=== PATIENT | female | born 1965 | race Caucasian/White ===

== ENCOUNTER 2018-03-01 15:37 | Outpatient (CLI) | payer BC ==
--- NOTE | 2018-03-06 09:41 | Mammography Report ---
Reason: SCREENING MAMMO Procedure Date: 03/01/2018 Accession Number: [id number] / [id number] Procedure: JW - Screening Mammo Dig Bilat CPT Code: FULL RESULT: EXAM: Screening Mammo Dig Bilat DATE: 03/01/2018 4:07 PM CLINICAL HISTORY: Screening mammogram TECHNIQUE: Bilateral CC and MLO views were obtained. COMPARISON: Mammogram 11/23/2015 FINDINGS: The breast parenchyma is heterogeneously dense which may limit the sensitivity of mammography. There are benign appearing calcifications. No suspicious masses, clustered microcalcifications, or regions of architectural distortion are identified. IMPRESSION: Benign findings RECOMMENDATION: Routine annual screening unless otherwise clinically indicated. BIRADS CATEGORY 2: Benign findings STANDARD QUALIFYING STATEMENTS: 1. This examination was reviewed with the aid of Computer-Aided Detection (CAD). 2. A negative or benign imaging report should not delay biopsy if clinically suspicious findings are present. Consider surgical consultation if warrented. More than 5% of cancers are not identified by imaging. 3. Dense breasts may obscure an underlying neoplasm.
== END 2018-03-01 15:38 | disposition home or self-care (01) ==
LOC: DI 15:37
PROVIDERS: ATTEND Family Medicine
DX: Z12.31 Encounter for screening mammogram for malignant neoplasm of breast (principal)
CPT/HCPCS: 77067

== ENCOUNTER 2019-01-23 | Outpatient (CLI) | payer BC | END 2019-01-23 23:59 | disposition home or self-care (01) ==

== ENCOUNTER 2019-05-02 15:10 | Outpatient (CLI) | payer BC ==
--- NOTE | 2019-05-05 08:29 | Mammography Report ---
Reason: ROUTINE MAMMO Procedure Date: 05/02/2019 Accession Number: [id number] / [id number] Procedure: JW - Screening Mammo w/Vlad CPT Code: Final Report FULL RESULT: EXAM: Screening Mammo w/Vlad DATE: 05/02/2019 4:00 PM CLINICAL HISTORY: Routine screening. No reported personal history of breast cancer. Family history of breast cancer paternal grandmother age 66. TECHNIQUE: (B) - Bilateral CC and MLO views were obtained. COMPARISON: 03/01/2018 through 03/18/2010. PARENCHYMAL PATTERN: (D) - The breasts demonstrate heterogeneously dense fibroglandular parenchyma bilaterally. FINDINGS: Bilateral breasts: There are no suspicious masses, calcifications, or areas of distortion. IMPRESSION: Negative examination. BI-RADS category 1. RECOMMENDATION: (ANNUAL) - Recommend routine annual screening mammography. BI-RADS CATEGORY: (1) - Negative. STANDARD QUALIFYING STATEMENTS: 1. This examination was not reviewed with the aid of Computer-Aided Detection (CAD). 2. A negative or benign imaging report should not preclude biopsy if clinically suspicious findings are present. 3. Dense breasts may obscure an underlying neoplasm. 4. This examination was reviewed with the aid of 3D breast imaging (tomosynthesis).
== END 2019-05-02 15:11 | disposition home or self-care (01) ==
LOC: DI 15:10
DX: Z12.31 Encounter for screening mammogram for malignant neoplasm of breast (principal); Z80.3 Family history of malignant neoplasm of breast
CPT/HCPCS: 77063; 77067

== ENCOUNTER 2020-05-08 07:00 | Outpatient (CLI) | payer BC, OTHER ==
--- NOTE | 2020-05-08 10:21 | XRAY Report ---
PROCEDURE: Chest 2 View X-Ray INDICATIONS: CHEST WALL PAIN TECHNIQUE: 2 view(s) of the chest. COMPARISON: None. FINDINGS: Surgical changes and devices: None. Lungs and pleura: No pleural effusions or pneumothorax. Lungs are clear. Mediastinum: Mediastinal contours are normal. Heart size is normal. Bones and chest wall: No suspicious bony abnormalities. Soft tissues appear unremarkable. IMPRESSION: No acute process. Reviewed by: Akin Mckeon MD on 05/08/2020 10:19 AM [facility] [[email or web address]] Approved by: Akin Mckeon MD on 05/08/2020 10:19 AM [facility] [[email or web address]] Station ID: [id number]
== END 2020-05-08 23:59 | disposition home or self-care (01) ==
LOC: DI.N 07:00
PROVIDERS: ATTEND Family Medicine
DX: R07.89 Other chest pain (principal); R50.9 Fever, unspecified; Z20.828 Contact with and (suspected) exposure to other viral communicable diseases
CPT/HCPCS: 71046

== ENCOUNTER 2020-08-24 15:32 | Outpatient (CLI) | payer OTHER ==
--- NOTE | 2020-08-25 10:06 | Mammography Report ---
BILATERAL DIGITAL SCREENING MAMMOGRAM 3D/2D: 08/24/2020 CLINICAL: Routine screening. Comparison is made to exams dated: 05/02/2019 mammogram, 03/01/2018 mammogram, 11/23/2015 mammogram, mammogram, 05/30/2012 mammogram, and 11/01/2011 mammogram - Located within [facility]. There are scattered fibroglandular elements in both breasts. No significant masses, calcifications, or other findings are seen in either breast. There has been no significant interval change. IMPRESSION: NEGATIVE There is no mammographic evidence of malignancy. A 1 year screening mammogram is recommended. This exam was interpreted at Station ID: [id number]. NOTE: For mammograms, a report in lay terms will be sent to the patient. Approximately 15% of breast malignancies will not be visualized mammographically. In the management of a palpable breast mass, a negative mammogram must not discourage biopsy of a clinically suspicious lesion. Electronically Signed By: Yuniel Hunt acr/penrad:08/24/2020 16:42:29 ACR BI-RADS Category 1: Negative 3341F PARENCHYMAL PATTERN: (A) - The breast(s) demonstrate(s) scattered fibroglandular densities. BI-RADS CATEGORY: (1) - 1 RECOMMENDATION: (ANNUAL) - Recommend routine annual screening mammography. [id number] 1 year screening LATERALITY: (B)
== END 2020-08-24 15:33 | disposition home or self-care (01) ==
LOC: DI.N 15:32
DX: Z12.31 Encounter for screening mammogram for malignant neoplasm of breast (principal)

== ENCOUNTER 2021-10-24 15:50 | Outpatient (CLI) | payer OTHER ==
--- NOTE | 2021-10-24 17:09 | XRAY Report ---
PROCEDURE: Pelvis 1 View INDICATIONS: L HIP PX TECHNIQUE: Single AP view of the pelvis COMPARISON: None. FINDINGS: Mild spurring of the lateral acetabulum is seen bilaterally. No acute fracture or dislocation. No ira picious soft tissue calcification. Moderate stool is seen in the right colon. IMPRESSION: Mild bilateral hip osteoarthrosis. Reviewed by: Wally Thompson MD on 10/24/2021 5:07 PM PDT Approved by: Wally Thompson MD on 10/24/2021 5:07 PM PDT Station ID: [id number]
== END 2021-10-24 23:59 | disposition home or self-care (01) ==
LOC: DI.N 15:50
PROVIDERS: ATTEND Nurse Practitioner
DX: M16.0 Bilateral primary osteoarthritis of hip (principal)

== ENCOUNTER 2022-03-03 15:32 | Outpatient (CLI) | payer OTHER ==
--- NOTE | 2022-03-07 10:20 | Mammography Report ---
BILATERAL DIGITAL SCREENING MAMMOGRAM 3D/2D: 03/03/2022 CLINICAL: Routine screening. Comparison is made to exams dated: 08/24/2020 mammogram, 05/02/2019 mammogram, 03/01/2018 mammogram, 11/22 mammogram, and 04/09/2014 mammogram - [facility]. There are scattered areas of fibroglandular density in both breasts (category b / 25%-50% glandular t issue). There is an oval focal asymmetry in the right breast at 7 o'clock anterior depth. No other significant masses, calcifications, or other findings are seen in either breast. IMPRESSION: INCOMPLETE: NEEDS ADDITIONAL IMAGING EVALUATION The oval focal asymmetry in the right breast is indeterminate. Additional views with possible ultras ound are recommended. This exam was interpreted at Station ID: [id number]. NOTE: For mammograms, a report in lay terms will be sent to the patient. Approximately 15% of breast malignancies will not be visualized mammographically. In the management of a palpable breast mass, a negative mammogram must not discourage biopsy of a clinically suspicious lesion. Electronically Signed By: Yuniel Hunt acr/:03/06/2022 15:56:58 ACR BI-RADS Category 0: Incomplete 3340F PARENCHYMAL PATTERN: (A) - The breast(s) demonstrate(s) scattered fibroglandular densities. BI-RADS CATEGORY: (0) - 0 Mammo and [place] [id number] Immediate follow-up LATERALITY: (R)
== END 2022-03-03 15:33 | disposition home or self-care (01) ==
LOC: DI 15:32
DX: Z12.31 Encounter for screening mammogram for malignant neoplasm of breast (principal)

== ENCOUNTER 2022-12-12 11:53 | Outpatient (CLI) | payer OTHER ==
--- NOTE | 2022-12-13 10:37 | Ultrasound Report ---
LIMITED ULTRASOUND OF RIGHT BREAST: 12/12/2022 CLINICAL: Patient returns for sonographic evaluation of right breast mass. Comparison is made to exams dated: 03/31/2022 ultrasound, 03/31/2022 mammogram, 03/03/2022 mammogram, an d 08/24/2020 mammogram - [facility]. Color flow and real-time ultrasound of the right breast 7 o'clock region were performed. Salazar scale images of the real-time examination were reviewed. There is a benign 0.6 cm x 0.5 cm x 0.3 cm oval complicated cyst in the right breast at 7 o'clock ant erior depth 1 cm from the nipple. This oval complicated cyst is anechoic with internal echoes. This abnormality is decreased in size and correlates with mammography findings. Color flow imaging demon strates that there is no vascularity present. IMPRESSION: BENIGN There is no sonographic evidence of malignancy. The 0.6 cm complicated cyst in the right breast is decreased in size and is benign. Return to annual mammogram screening schedule is recommended. Exam findings were conveyed to the patient. This exam was interpreted at Station ID: [id number]. Electronically Signed By: Brian Mtz M.D. slc/:12/12/2022 12:45:33 Ultrasound BI-RADS: 2 Benign BI-RADS CATEGORY: (2) - 2 Mammogram [id number] return to screening LATERALITY: (B)
== END 2022-12-12 11:54 | disposition home or self-care (01) ==
LOC: DI 11:53
PROVIDERS: ATTEND Physician Assistant
DX: N60.01 Solitary cyst of right breast (principal)

== ENCOUNTER 2024-01-13 14:14 | Outpatient (CLI) | payer OTHER ==
--- NOTE | 2024-01-13 18:02 | XRAY Report ---
PROCEDURE: Finger(s) RT INDICATIONS: NONDISPLACED FRACTURE TECHNIQUE: AP hand, 2 views of the first finger(s) acquired. COMPARISON: None. FINDINGS: Bones: Transverse fracture through first proximal phalangeal base is seen.. Osteoarthritic changes t hroughout right thumb are seen. No suspicious bony lesions. Soft tissues: No suspicious soft tissue calcifications or masses. IMPRESSION: Age indeterminant nondisplaced transverse fracture through first proximal phalangeal base. No other f racture or dislocation. Right thumb osteoarthritis. Reviewed by: Arnulfo Beebe MD on 01/13/2024 6:01 PM PDT Approved by: Arnulfo Beebe MD on 01/13/2024 6:01 PM PDT Station ID: [id number]
== END 2024-01-13 14:15 | disposition home or self-care (01) ==
LOC: DI 14:14
PROVIDERS: ATTEND Physician Assistant Surgical
DX: S62.524D Nondisplaced fracture of distal phalanx of right thumb, subsequent encounter for fracture with routine healing (principal)

== ENCOUNTER 2024-01-16 14:55 | Outpatient (CLI) | payer OTHER ==
--- NOTE | 2024-01-16 20:47 | XRAY Report ---
PROCEDURE: Ankle 3+V RT INDICATIONS: SPRAIN OF UNSPECIFIED LIGAMENT OF RIGHT ANKLE TECHNIQUE: 3 views of the ankle were acquired. COMPARISON: None. FINDINGS: Bones: Tiny osseous fragment at the tip of the lateral malleolus. Ankle mortise is normally aligned . No suspicious bony lesions. Soft tissues: No tibiotalar joint effusion. Achilles tendon appears normal. IMPRESSION: Tiny osseous fragment at the tip of the lateral malleolus, may represent a small avulsion fracture. Reviewed by: Pierce Santos MD on 01/16/2024 8:46 PM PDT Approved by: Pierce Santos MD on 01/16/2024 8:46 PM PDT Station ID: [id number]
== END 2024-01-16 23:59 | disposition home or self-care (01) ==
LOC: DI.N 14:55
PROVIDERS: ATTEND Nurse Practitioner
DX: S93.401A Sprain of unspecified ligament of right ankle, initial encounter (principal); Z18.89 Other specified retained foreign body fragments

== ENCOUNTER 2024-02-18 16:20 | Outpatient (CLI) | payer OTHER ==
--- NOTE | 2024-02-18 16:40 | XRAY Report ---
PROCEDURE: Hand 3+V RT INDICATIONS: NONDISPLACED FX DITAL PHALANX RIGHT THUMB TECHNIQUE: 3 views of the hand(s) acquired. COMPARISON: None. FINDINGS: Bones: Linear lucency at the base of the first distal phalanx. Mild diffuse interphalangeal and firs t MCP joint degeneration.. No suspicious bony lesions. Soft tissues: No suspicious soft tissue calcifications or masses. IMPRESSION: Linear lucency at the base of the first distal phalanx, may represent a nondisplaced fracture. Reviewed by: Pierce Davis MD on 02/18/2024 4:38 PM PDT Approved by: Pierce Davis MD on 02/18/2024 4:38 PM PDT Station ID: [id number]
== END 2024-02-18 16:21 | disposition home or self-care (01) ==
LOC: DI 16:20
PROVIDERS: ATTEND Physician Assistant Surgical
DX: S62.524D Nondisplaced fracture of distal phalanx of right thumb, subsequent encounter for fracture with routine healing (principal)